=== PATIENT | male | born 1950 | race Caucasian/White ===

== ENCOUNTER → 2016-06-10 | Outpatient (CLI) | payer BC ==
[~2016-06-10] MED LIST: CLOP1TAB5 PO; CMBIN INH; FAMO1TAB71 PO; FISHOIL PO; LISI-791 PO; LPR25 PO; Livalo PO; MOME100A INH; MULTTAB58 PO; TRIA3AER NAE
== END | disposition home or self-care (01) ==
LOC: C.LAB 13:53
PROVIDERS: ATTEND Radiology Radiation Oncology
DX: C60.9 Malignant neoplasm of penis, unspecified (principal)

== ENCOUNTER → 2016-06-15 | Outpatient (CLI) | payer BC ==
[2015-06-10 12:59] VITALS: BP 144/73; PULSE 60
[2016-06-15 12:55] VITALS: BP 152/80; PULSE 45; TEMP 36.7; O2SAT 96
--- NOTE | 2016-06-15 14:38 | Radiation Oncology Follow-Up ---
Radiation Oncology Follow-Up Date of Visit Jun 15, 2016. Reason For Visit Annual follow-up Radiation Completion Date 05/10/2011 Diagnosis (1) Prostate cancer Status: Resolved Onset Date: 01/06/2011 Location: both lobes of the prostate Histology Subtype: adenocarcinoma Stage: ll Permanent Comment: Rising PSA, clinical stage T1c Status post ultrasound-guided biopsies, biopsy stage T2c [place] 3+3 Status post prostate seed implant as monotherapy 05/10/2011 Last Edited By: Julissa Caro on Jun 10, 2015 13:36 Interim History He's been doing well from urinary standpoint. His AUA score was 2. He completed expanded prostate cancer index composite for clinical practice and gave a score of 0 of 12 and urinary incontinence symptoms. He gave a score of 0 12 in urinary irritation symptoms. He gave a score of 0 12 and bowel symptoms. He gave a score 2 of 12 and sexual symptoms. He gave a score of 0 of 12 in hormonal vitality symptoms. His total was 2 of 60. He does not take any medication to help with urination. He has had follow-up PSAs. He had a PSA 06/02/2014 that was 0.043. He had recheck PSA 06/02/2015 0.030. His PSA was 0.013. Allergies Coded Allergies: Alcohol (Verified Allergy, Mild, 11/28/12) Aspirin (Verified Allergy, Mild, 11/28/12) Statins (Verified Adverse Reaction, Mild, Severe Aches/Body Pain , ) Home Medications Scheduled Clopidogrel Bisulfate (Plavix), 75 MG PO DAILY Famotidine (Pepcid), 20 MG PO DAILY Fish Oil ([place]-3), 1 CAP PO Q2D Ipratropium/Albuterol (Combivent), 2 PUFFS INH PRN Metoprolol Tartrate (Lopressor), 25 MG PO BID Mometasone Furoate-Formoterol (Dulera 100/5 Mcg), 2 PUFFS INH BID Multiple Vitamin (Multivitamin), 1 TAB PO Q2D Triamcinolone Acetonide (Nasal (Nasacort Aq Nasal Inh), 1 SPRAY TORI BID [Livalo ], 1 MG PO DAILY Review of Systems Gastrointestinal: Symptoms: WNL Oral: Symptoms: No Problems Respiratory: Symptoms: WNL Sputum Character: White sputum with productive cough Other Respiratory: PND / Asthma causes cough at times Urinary: Symptoms: WNL Comments: See AUA & EPIC Skin: Symptoms: No Problems Physical Exam Vital Signs Date Time Temp Pulse Resp B/P Pulse Ox O2 Delivery O2 Flow Rate FiO2 06/15/16 12:55 36.7 45 16 152/80 96 Pain: Pain Location: None Patient Pain Scale: 0 - 10 Initial Pain Intensity: 0.0 Fatigue: None General Appearance: no apparent distress Eyes: normal inspection, EOMI ENT: normal ENT inspection, hearing grossly normal Neck: no adenopathy, thyroid normal Respiratory/Chest: lungs clear, no respiratory distress, no accessory muscle use Cardiovascular: regular rate, rhythm, no gallop, no murmur Abdomen: non tender, soft, no organomegaly Anal / Rectum: Normal sphincter tone. Prostate without nodules. No rectal masses no rectal bleeding. Extremities: no pedal edema Neurologic/Psychiatric: no motor/sensory deficits, alert, normal mood/affect Skin: warm/dry Lymphatic: no adenopathy Laboratory Studies Test 06/10/16 14:13 Prostate Specific Antigen 0.013 ng/ml (0.000-4.000) Assessment & Plan Plan: Continue annual PSAs and recheck examinations. He currently is not followed by urology. He wants to continue follow-up with our office. He stated that he will call in for a lab order prior to his visit in one year. An order will be put into the computer and then he'll come in and have this drawn. It will then be available at his visit. An appointment was given for 1 year. Continue regular follow-up with his primary care office. He may call if he has any questions or concerns in the interim. Total Time In Follow-Up I spent 20 minutes speaking to the patient a performing examination. I spent 15 minutes reviewing information in completing this note. Copy To Herve Danielson PA-C
== END | disposition home or self-care (01) ==
LOC: C.ONC 12:41
PROVIDERS: ATTEND Radiology Radiation Oncology
DX: Z08 Encounter for follow-up examination after completed treatment for malignant neoplasm (principal); Z92.3 Personal history of irradiation; Z85.46 Personal history of malignant neoplasm of prostate

== ENCOUNTER → 2017-06-13 | Outpatient (CLI) | payer BC ==
[2015-06-10 12:59] VITALS: BP 144/73; PULSE 60
[~2017-06-13] MED LIST changes: +FAMO-103 PO; -FAMO1TAB71 PO; -LISI-791 PO
[2017-06-13 13:02] VITALS: BP 138/80; PULSE 50; TEMP 36.7; O2SAT 94
--- NOTE | 2017-06-13 15:07 | Radiation Oncology Follow-Up ---
Radiation Oncology Follow-Up Date of Visit Jun 13, 2017. Reason For Visit Annual follow-up Radiation Completion Date 05/10/11 Diagnosis (1) Prostate cancer Status: Resolved Onset Date: 01/06/2011 Location: both lobes the prostate Histology Subtype: adenocarcinoma Stage: ll Permanent Comment: Rising PSA, clinical stage T1c Status post ultrasound-guided biopsies, biopsy stage T2c [place] 3+3 Status post prostate seed implant as monotherapy 05/10/2011 Last Edited By: Julissa Caro on Jun 10, 2015 13:36 Interim History He's been doing well over this past year for a urinary standpoint. Today he gave an AUA score 1. Last year he gave a score of 2. He completed and expanded prostate cancer index composite for clinical practice and gave a score of 0 of 12 in urinary incontinence symptoms. He gave a score of 0 of 12 urinary irritation symptoms. He gave a score of 0 of 12 and bowel symptoms. He gave a score 1 of 12 and sexual symptoms. He gave a score of 0 of 12 and hormonal vitality symptoms. His total was 1 of 60. His PSA last year was 0.013. Allergies Coded Allergies: Alcohol (Verified Allergy, Mild, 11/28/12) Aspirin (Verified Allergy, Mild, 11/28/12) Statins (Verified Adverse Reaction, Mild, Severe Aches/Body Pain , ) Home Medications Scheduled Clopidogrel Bisulfate (Plavix), 75 MG PO DAILY Famotidine (Pepcid), 20 MG PO DAILY Fish Oil ([place]-3), 1 CAP PO Q2D Ipratropium/Albuterol (Combivent), 2 PUFFS INH PRN Metoprolol Tartrate (Lopressor), 25 MG PO BID Mometasone Furoate-Formoterol (Dulera 100/5 Mcg), 2 PUFFS INH BID Multiple Vitamin (Multivitamin), 1 TAB PO Q2D Triamcinolone Acetonide (Nasal (Nasacort Aq Nasal Inh), 1 SPRAY TORI BID [Livalo ], 1 MG PO DAILY Review of Systems Gastrointestinal: Symptoms: WNL Oral: Symptoms: No Problems Respiratory: Symptoms: WNL Sputum Character: White sputum with productive cough Other Respiratory: Asthma related SOB/Cough at times Urinary: Symptoms: WNL Comments: See AUA & EPIC Skin: Symptoms: No Problems Physical Exam Vital Signs Date Time Temp Pulse Resp B/P (MAP) Pulse Ox O2 Delivery O2 Flow Rate FiO2 06/13/17 13:02 36.7 50 16 138/80 94 Fatigue: None General Appearance: no apparent distress Eyes: normal inspection, EOMI ENT: normal ENT inspection, hearing grossly normal Respiratory/Chest: lungs clear, no respiratory distress, no accessory muscle use Cardiovascular: regular rate, rhythm, no gallop, no murmur Abdomen: non tender, soft, no organomegaly Anal / Rectum: Normal sphincter tone. No rectal masses and no rectal bleeding. Prostate without nodules. Extremities: no pedal edema Neurologic/Psychiatric: no motor/sensory deficits, alert, normal mood/affect Skin: warm/dry Pain Management Patient Reports Pain: No Patient Preferred Pain Scale: 0 - 10 Initial Pain Intensity: 0.0 Pain Management Plan He has a discomfort in his knee. He does not give us a pain level. This is improving. Laboratory Laboratory Results: were reviewed, and pertinent findings noted below Laboratory Comments: Test 06/13/17 13:13 Prostate Specific Antigen < 0.010 ng/ml (0.000-4.000) Pathology Pathology Results: not applicable Imaging Imaging Studies: not applicable Assessment & Plan A PSA was drawn today prior to examination. He'll be notified as the results. Continue regular follow-up with his primary care provider. We asked him to return to our office in 1 year. He is currently not following with urology. He may call our office if he has any questions or concerns in the interim. Total Time In Follow-Up I spent 20 minutes speaking to the patient and performing examination. I spent 15 minutes reviewing information and completing this note. Copy To Herve Danielson PA-C; Vasiliy Khanna MD
== END | disposition home or self-care (01) ==
LOC: C.ONC 12:25
PROVIDERS: ATTEND Physician Assistant Medical
DX: Z08 Encounter for follow-up examination after completed treatment for malignant neoplasm (principal); Z92.3 Personal history of irradiation; Z85.46 Personal history of malignant neoplasm of prostate